=== PATIENT | female | born 1975 | race Caucasian/White ===

== ENCOUNTER 2017-08-28 23:34 | Emergency (ER) | payer OTHER ==
[~2017-08-28] VITALS: Ht 152.4 cm; Wt 56.7 kg
[~2017-08-28 23:34] MED LIST: CELEXA 20 MG TA20 M1 PO; NOHOMEMEDICATIONS; PROPRANOLOL 1010 M1; SEROQUEL XR 30300 MG PO; UNISOM SLEEP AI25 MG
[2017-08-28] MEDS ORDERED: BACTRIM DS TAB1 EACH (23:53)
[2017-08-29 00:16] LABS: ABSOLUTE EOSINOPHILS 0.2 thou/uL (0.0-0.7); ABSOLUTE LYMPHOCYTES 2.4 thou/uL (0.8-5.3); ABSOLUTE MONOCYTES 0.4 thou/uL (0.0-1.2); ABSOLUTE NEUTROPHILS 3.2 thou/uL (1.6-8.1); BASOPHILS 0.8 %; EOSINOPHILS 3.1 %; HEMATOCRIT 40.7 % (37.0-47.0); HEMOGLOBIN 14.3 gm/dL (12.0-15.0); LYMPHOCYTES 38.3 %; MCH 32.6 pg (26.0-34.0); MCHC 35.1 g/dL (28.0-37.0); MONOCYTES 6.7 %; MPV 7.2 fl. (7.2-11.1); NUCLEATED RBCS 0 /100WBC; PLATELET COUNT* 245 thou/uL (150-400); POLYS 51.1 %; RBC 4.37 mil/uL (4.20-5.00); RDW-CV 12.5 % (10.5-14.5); WBC 6.2 thou/uL (4.0-11.0)
[2017-08-29 00:26] LABS: ANION GAP 8 mmol/L (7-16); BUN 7 mg/dL (7-18); CALCIUM 8.8 mg/dL (8.5-10.1); CHLORIDE 105 mmol/L (98-107); CO2 27 mmol/L (21-32); CREATININE 0.8 mg/dL (0.6-1.3); GLUCOSE 93 mg/dL (70-99); POTASSIUM 3.8 mmol/L (3.5-5.1); SODIUM 140 mmol/L (136-145)
[2017-08-29 00:33] LABS: ALBUMIN 3.7 g/dL (3.4-5.0); ALKALINE PHOSPHATASE 76 U/L (46-116); SGOT 19 U/L (15-37); SGPT 33 U/L (30-65); TOTAL BILIRUBIN 0.2 mg/dL (<0.1-1.0); TOTAL PROTEIN 7.9 g/dL (6.4-8.2); TROPONIN-I LEVEL <0.06 ng/mL (<0.06)
[2017-08-29] MEDS ORDERED: PREDNISONE50 MG PO (01:08)
[2017-08-29] MEDS ORDERED: VENTOLIN HFA 1818 GM INH (01:08)
[2017-08-29 01:17] VITALS: BP 109/63
--- NOTE | 2017-08-29 12:42 | EKG ---
[place] [address] ELECTROCARDIOGRAM REPORT Name: RASHAD FOREMAN Room: [facility]#: [id number] Admission: 08/28/17 Attend Phys: Discharge: 08/29/17 Date of : 71 Report #: [id number] THIS REPORT FOR: //name// [facility] ED Test Date: 2017-08-29 Test Time: 00:43:04 Pat Name: RASHAD FOREMAN Department: Room: Gender: F [employer] Disability Teacher: ASHLI Davis : 1975 Requested By: Jeffy Segovia Order Number: [id number] MD: Be Chatterjee Measurements Intervals [place] Rate: 59 P: 12 [place]: 149 QRS: 37 QRSD: 101 T: 36 QT: 413 QTc: 410 Interpretive Statements Sinus rhythm RSR' in V1 or V2, probably normal variant No previous ECG available for comparison Electronically Signed On 08-29-2017 12:42:17 CDT by Be Chatterjee [email or web address] <ELECTRONICALLY SIGNED> By: Be Chatterjee MD, [facility] 08/29/17 1242 0043 Be Chatterjee MD, [facility] /EPI
== END 2017-08-29 01:19 | disposition home or self-care (01) ==
LOC: M.ERS 23:34
PROVIDERS: Emergency Medicine Emergency Medical Services
DX: J40 Bronchitis, not specified as acute or chronic (principal); F17.210 Nicotine dependence, cigarettes, uncomplicated; Z88.0 Allergy status to penicillin